=== PATIENT | male | born 1965 | race Two or more races ===

== ENCOUNTER 2017-07-04 20:38 | Inpatient (IN) | payer OTHER ==
--- NOTE | 2017-07-04 20:58 | PDOC ---
Attending Attestation - Resident Resident Name: Darren Cornelius - ED Attending Attestation I have performed the following: I have examined & evaluated the patient, The case was reviewed & discussed with the resident, I agree w/resident's findings & plan - HPI HPI: 07/04/17 20:51 Pt comes with syncope x 3 today once prior to his calling EMS and 2 while EMS was present. Pt is afebrile VSS on arrival. Normal EKG. NSS running. Pt is improved. EKG done by EMS was also NSR. Pt has hx of DM HTN high cholesterol. He had an umbilical hernia repair at [facility] with Gordon Davis. Pt had nothing to eat since 10PM yesterday, except for a glass of juice post op. Went home and hasn't eaten or taken any of his meds.Pt is afebrile here. - Physicial Exam PE: 07/04/17 20:58 Agree iw resident exam. Exquisite abd pain. - Critical Care Time Total Critical Care Time: 30 Critical Care Statement: The care of this patient involved high complexity decision making to prevent further life threatening deterioration of the patient 's condition and/or to evaluate & treat vital organ system(s) failure or risk of failure. - Medical Decision Making 07/04/17 20:[address] abd pelvis wiith oral contrast. 07/04/17 23:18 Lactic acid 3.2 Pt treated with IV abx. Awaiting CT scan 07/05/17 01:14 Patient Name: INDRA ALEGRIA THIS IS A PRELIMINARY REPORT FROM [facility] DATE OF SERVICE: 2017-07-04 23:29:47 IMAGES: 539 EXAM: CT ABDOMEN \T\ PELVIS WITH CONTRAST TECHNIQUE: One of more of the following dose reduction techniques were use: Automated exposure control adjustment of the mA and/or kV according to the patient size, use of iterative reconstructive technique. Axial images from the lung bases to the symphysis pubis utilizing spiral imaging technique with multiplanar reconstructions from the axial data set. 100 mL of Omnipaque 350 IV contrast was administered without noted complication. Oral contrast: Yes. HISTORY: Abdominal pain. COMPARISON: None. FINDINGS: Right lower lobe patchy and linear atelectasis or scarring is present with some more subtle dependent left subpleural atelectasis. Mild to moderate hiatal hernia is present. Left kidney contains a 0.5 and 0.6 cm nonobstructive mid calyceal stones and right kidney contains a 0.2 cm nonobstructive mid calyceal stone. Next the left kidney contains a punctate superior pole cyst. Liver is enlarged at 1.5 cm in length. No focal hepatic mass. No intrahepatic duct dilatation. Hepatic and portal vascularity is patent. Gallbladder and biliary tree are unremarkable. Spleen, pancreas and adrenal glands are unremarkable. Aorta is normal in caliber with no significant atherosclerosis. No lymphadenopathy based on size criteria. Paraumbilical recent surgical changes with inflammation and trace gas is present. Small punctate free air in the upper abdomen is present. Bowel appears unremarkable. Appendix is negative. No free intraperitoneal fluid or gas. Spine shows some minimal retrolisthesis of L4 on L5 with minimal scattered degenerative change. Bladder is mildly distended. Prostate is mildly prominent. Anterior pelvic surgical changes are present with surgical changes of right inguinal hernia repair. IMPRESSION: 1. Punctate nondependent gas in the abdomen and suggestion of recent operative changes in the periumbilical region. Operative changes to the right inguinal canal with some inflammatory stranding. Correlate with any recent operative history. No contrast extravasation identified. Correlate clinically to exclude bowel injury or infection. 2. No active bowel inflammation identified. No bowel obstruction. 3. Nonobstructive renal calyceal stones. 4. Mild to moderate hiatal hernia. Patchy right greater than left dependent atelectasis or scarring. 5. Hepatomegaly. THIS DOCUMENT HAS BEEN ELECTRONICALLY SIGNED 07/05/17 06:19 <Mallory Harrison - Last Filed: 07/05/17 06:24> Heart Score/ECG Review - ECG Intrepretation Comment:: 07/05/17 00:16 Completed @20:49:48 Normal sinus rhythm Normal ECG Vent. rate 69 bpm Pr interval 140 ms QRS duration 80 ms <Blanco Abdul - Last Filed: 07/05/17 00:15>
[2017-07-04 21:02] LABS: BASO % 0.3 % (0-2.0); EOS % 0.4 % (0-4.5); HEMATOCRIT 37.4 % (35.4-49); HEMOGLOBIN 12.1 GM/dL (11.7-16.9); MCHC 32.3 g/dl (32.0-35.9); MEAN CELL VOLUME 59.2 fl (80-96); MEAN PLT VOLUME 9.7 fl (7.5-11.1); MONO % 6.4 % (3.8-10.2); NEUT % 67.9 % (42.8-82.8); PLATELET COUNT 199 K/MM3 (134-434); RBC 6.31 M/mm3 (4.00-5.60); RDW 16.4 % (11.9-15.9); WHITE BLOOD COUNT 7.4 K/mm3 (4.0-10.0)
[2017-07-04 21:04] LABS: ADD RBC MORPHOLOGY YES; MCH 19.1 pg (25.7-33.7)
--- NOTE | 2017-07-04 21:11 | PDOC ---
History of Present Illness - General Chief Complaint: Syncope/Near Syncope Stated Complaint: Syncope Time Seen by Provider: 07/04/17 20:45 History Source: Patient Exam Limitations: No Limitations - History of Present Illness Initial Comments: 07/04/17 21:03 Patient 51M with history of incarcerated hernia repair today at [facility], HTN, DM here today complaining of syncope. EMS reports that the patient tensed up diffusely and collapsed twice. EMS was concerned patient was about to have tonic/clonic seizure and reported the patient as altered en route. Patient states that he last had real food yesterday night, has not had a bowel movement or passed gas, and took a percocet today. Patient complains of abdominal pain. EMS reports patient also had episode of vomiting en route. EMS gave 1L NS and 4 zofran. EKG done in field normal. Past History - Past Medical History Allergies/Adverse Reactions: Allergies Allergy/AdvReac Type Severity Reaction Status Date / Time No Known Allergies Allergy Verified 07/04/17 20:52 Home Medications: Ambulatory Orders Aspirin [Aspirin EC] 81 mg PO DAILY 07/04/17 Glimepiride [Amaryl -] 1 mg PO DAILY 07/04/17 Metformin HCl 850 mg PO DAILY 07/04/17 Omeprazole 40 mg PO DAILY 07/04/17 Tamsulosin HCl [Flomax -] 0.4 mg PO DAILY 07/04/17 - Suicide/Smoking/Psychosocial Hx Smoking History: Former smoker Have you smoked in the past 12 months: No Information on smoking cessation initiated: No Hx Alcohol Use: No Drug/Substance Use Hx: No Review of Systems - Review of Systems Comments:: 07/04/17 21:11 GENERAL/CONSTITUTIONAL: No fever or chills. No weakness. HEAD, EYES, EARS, NOSE AND THROAT: No change in vision. No sore throat. CARDIOVASCULAR: No chest pain or shortness of breath RESPIRATORY: No cough, wheezing, or hemoptysis. GASTROINTESTINAL: No nausea, vomiting, diarrhea or constipation. GENITOURINARY: No dysuria, frequency, or change in urination. MUSCULOSKELETAL: No joint or muscle swelling or pain. No neck or back pain. SKIN: No rash NEUROLOGIC: No headache, vertigo, loss of consciousness, or change in strength/ sensation. HEMATOLOGIC/LYMPHATIC: No anemia, easy bleeding, or history of blood clots. ALLERGIC/IMMUNOLOGIC: No hives or skin allergy. *Physical Exam - Vital Signs Last Vital Signs Temp Pulse Resp BP Pulse Ox 98.9 F 71 19 156/99 100 07/04/17 20:45 07/04/17 20:45 07/04/17 20:45 07/04/17 20:45 07/04/17 20:45 - Physical Exam Comments: 07/04/17 21:13 GENERAL: Awake, alert, and fully oriented, in no acute distress HEAD: No signs of trauma, normocephalic, atraumatic EYES: PERRLA, EOMI, sclera anicteric, conjunctiva clear ENT: Auricles normal inspection, hearing grossly normal, nares patent, oropharynx clear without exudates. Moist mucosa NECK: Normal ROM, supple, no lymphadenopathy, JVD, or masses LUNGS: No distress, speaks full sentences, clear to auscultation bilaterally HEART: Regular rate and rhythm, normal S1 and S2, no murmurs, rubs or gallops, peripheral pulses normal and equal bilaterally. ABDOMEN: Diffusely tender, no rebound, no guarding NEUROLOGICAL: Cranial nerves II through XII grossly intact. Normal speech, no focal sensorimotor deficits SKIN: Warm, Dry, normal turgor, no rashes or lesions noted. ED Treatment Course - LABORATORY CBC & Chemistry Diagram: 07/04/17 20:40 07/04/17 20:40 - RADIOLOGY Radiology Studies Ordered: Category Date Time Status ABDOMEN & PELVIS CT WITH CONTR [CT] Stat CT Scan 07/04/17 20:[address] WITHOUT CONTRAST [CT] Stat CT Scan 07/04/17 20:56 Ordered CHEST X-RAY PORTABLE* [RAD] Stat Radiology 07/04/17 20:45 Ordered Medical Decision Making - Medical Decision Making 07/04/17 21:14 Patient is 51M with history of HTN, DM and incarcerated hernia repair today here with syncope s/p surgery. No confirmed bowel movement or passing as today, concern for post op ileus. Vital signs stable, no fever. Will do work up of cbc , cmp, ekg, trop, pt/inr, lactate, ekg, head ct, abd/pelvis ct. EKG shows normal sinus rhythm with rate of 69. No st elevation or depression. No significant t wave changes. Normal DC/QRS/QTc intervals. Reassuring EKG. 07/04/17 22:16 Laboratory Tests 07/04/17 07/04/17 07/04/17 20:40 20:40 20:40 WBC 7.4 Hgb 12.1 Plt Count 199 INR 1.04 Carbon Dioxide 30 Anion Gap 6 L Lactic Acid Urine WBC (Auto) Urine RBC (Auto) 07/04/17 07/04/17 20:40 21:27 WBC Hgb Plt Count INR Carbon Dioxide Anion Gap Lactic Acid 3.2 H* Urine WBC (Auto) 2 Urine RBC (Auto) <1 CBC normal. INR normal. CMP reassuring. Lactic acid elevated to 3.2. UA negative. CXR shows no acute cardiopulmonary process. Patient started on Zosyn for possible infection. Possible that patient's percocet is hiding fever. DDx includes, but is not limited to: dehydration, seizure, syncope, infection. 07/05/17 01:[address] abdomen shows no acute process. Concern now weighted towards syncope, seizure *DC/Admit/Observation/Transfer Diagnosis at time of Disposition: Syncope - Discharge Dispostion Condition at time of disposition: Stable Decision to Admit order: Yes - Referrals Referrals: Fatmata Dasilva MD [Primary Care Provider] - - Patient Instructions - Post Discharge Activity
[2017-07-04 21:16] LABS: INR 1.04 (0.82-1.09); PROTHROMBIN TIME (PATIENT) 11.8 SEC (9.7-13.0)
[2017-07-04 21:18] LABS: ACTIVATED PTT 25.4 SECONDS (26.9-34.4)
[2017-07-04 21:43] LABS: URINE APPEARANCE CLEAR; URINE BILIRUBIN NEGATIVE (<2.0 mg/dL); URINE COLOR LTYELLOW; URINE GLUCOSE (UA) 3+ (NEGATIVE); URINE KETONE NEGATIVE (NEGATIVE); URINE LEUK ESTERASE NEGATIVE (NEGATIVE); URINE NITRITE NEGATIVE (NEGATIVE); URINE UROBILINOGEN NEGATIVE mg/dL (0.2-1.0)
[2017-07-04] MEDS ORDERED: PIPERACILLIN/TAZOB 3.375 GM 3.375 GM in DEXTROSE 5%-WATER - 50 ML IVPB ONE (21:43)
[2017-07-04 21:44] LABS: URINE PROTEIN 1+ (NEGATIVE)
[2017-07-04 21:48] LABS: BLOOD UREA NITROGEN 10 mg/dL (7-18); GLUCOSE,RANDOM 250 mg/dL (74-106)
[2017-07-04 21:49] LABS: ALBUMIN 3.5 g/dl (3.4-5.0); ANION GAP 6 (8-16); BILIRUBIN,TOTAL 0.5 mg/dL (0.2-1.0); CALCIUM 8.3 mg/dL (8.5-10.1); CHLORIDE 100 mmol/L (98-107); CO2 30 mmol/L (21-32); POTASSIUM 3.8 mmol/L (3.5-5.1); SGOT/AST 28 U/L (15-37); SODIUM 136 mmol/L (136-145); TOT PROT 7.7 g/dl (6.4-8.2)
[2017-07-04 21:50] LABS: ALK PHOS 100 U/L (45-117); SGPT/ALT 40 U/L (12-78)
[2017-07-04 21:51] LABS: URINE MUCUS RARE
[2017-07-04 22:01] LABS: ANISOCYTOSIS 2+; MACROCYTOSIS 1+; PLATELET ESTIMATE ADEQUATE
[2017-07-04] MEDS ORDERED: PIPERACILLIN/TAZOB 3.375 GM 3.375 GM/50 ML BAG IVPB ONE (22:01)
--- NOTE | 2017-07-05 02:26 | HP ---
CHIEF COMPLAINT: possible syncope PCP: Dr. Fatmata Dasilva HISTORY OF PRESENT ILLNESS: 51 y/o M with PMH HTN, diabetes, who presented to the ED after possible syncopal episode after incarcerated umbilical hernia repair earlier today (07/04 ) at [facility]. As per patient, today at 10:30AM, he underwent umbilical hernia repair. After his procedure was complete, he had decreased appetite, felt faint and exhausted, telling his family he was "going to rest and sleep for the rest of the day." At 6PM, his suggested he eat something, so he came to the kitchen and sat on a chair, when he began to feel dizzy and nauseated. Pt then slumped back in his chair, with his eyes rolling back. Witnessed by family. His stated that he "looked blue" and the daughter called 911. En route, pt had one episode of NBNB emesis and received NS and Zofran. After, pt confused about earlier events. During this time, pt endorses abdominal pain with movement. Denies MEZA, fever, chills, SOB, or changes in urinary or bowel function. Also denies tongue biting, urinary or fecal incontinence, tonic-clonic movements. He also states that he did not eat since 10PM, the night before his surgery ( , 07/03). Ever since, he has felt faint and weak. ER course was notable for: (1) zosyn 3.375gm x 1 (2) initial lactic 3.2, improved to 1.8 after IVF (3) Recent Travel: none PAST MEDICAL HISTORY: as above PAST SURGICAL HISTORY: s/p incarcerated umbilical hernia repair Social History: Smoking: denies Alcohol: denies Drugs: denies Family History: non-contributory Allergies No Known Allergies Allergy (Verified 07/04/17 20:52) HOME MEDICATIONS: Home Medications Medication Instructions Recorded Aspirin [Aspirin EC] 81 mg PO DAILY 07/04/17 Glimepiride [Amaryl -] 1 mg PO DAILY 07/04/17 Metformin HCl 850 mg PO DAILY 07/04/17 Omeprazole 40 mg PO DAILY 07/04/17 Tamsulosin HCl [Flomax -] 0.4 mg PO DAILY 07/04/17 REVIEW OF SYSTEMS CONSTITUTIONAL: Absent: fever, chills, diaphoresis, generalized weakness, malaise, loss of appetite, weight change HEENT: Absent: rhinorrhea, nasal congestion, throat pain, throat swelling, difficulty swallowing, mouth swelling, ear pain, eye pain, visual changes CARDIOVASCULAR: Absent: chest pain, syncope, palpitations, irregular heart rate, lightheadedness , peripheral edema RESPIRATORY: Absent: cough, shortness of breath, dyspnea with exertion, orthopnea, wheezing, stridor, hemoptysis GASTROINTESTINAL: +abdominal pain, nausea, vomiting Absent: diarrhea, constipation, melena, hematochezia GENITOURINARY: Absent: dysuria, frequency, urgency, hesitancy, hematuria, flank pain, genital pain MUSCULOSKELETAL: Absent: myalgia, arthralgia, joint swelling, back pain, neck pain SKIN: Absent: rash, itching, pallor HEMATOLOGIC/IMMUNOLOGIC: Absent: easy bleeding, easy bruising, lymphadenopathy, frequent infections ENDOCRINE: Absent: unexplained weight gain, unexplained weight loss, heat intolerance, cold intolerance NEUROLOGIC: Absent: headache, focal weakness or paresthesias, dizziness, unsteady gait, seizure, mental status changes, bladder or bowel incontinence PSYCHIATRIC: Absent: anxiety, depression, suicidal or homicidal ideation, hallucinations. PHYSICAL EXAMINATION Vital Signs - 24 hr 07/04/17 20:45 Temperature 98.9 F Pulse Rate 71 Respiratory 19 Rate Blood Pressure 156/99 O2 Sat by Pulse 100 Oximetry (%) GENERAL: Sitting in bed. Awake, alert, and fully oriented, in no acute distress. HEAD: Normal with no signs of trauma. EYES: Pupils equal, round and reactive to light, extraocular movements intact, sclera anicteric, conjunctiva clear. EARS, NOSE, THROAT: Ears normal, nares patent, oropharynx clear without exudates. Moist mucous membranes. NECK: Normal range of motion, supple LUNGS: Breath sounds equal, clear to auscultation bilaterally. No wheezes, and no crackles. No accessory muscle use. HEART: Regular rate and rhythm, normal S1 and S2 without murmur, rub or gallop. ABDOMEN: Soft, +surgical patch- with serosanguineous drainage inside, normoactive bowel sounds, no guarding, no rebound, no masses. MUSCULOSKELETAL: Normal range of motion at all joints. No bony deformities or tenderness. LOWER EXTREMITIES: 2+ dorsalis pedis pulses, warm, well-perfused. No calf tenderness. No peripheral edema. NEUROLOGICAL: Cranial nerves II-XII intact. PSYCHIATRIC: Cooperative. Good eye contact. SKIN: Warm, dry, normal turgor Laboratory Results - last 24 hr 07/04/17 07/04/17 07/04/17 20:40 20:40 20:40 WBC 7.4 RBC 6.31 H Hgb 12.1 Hct 37.4 MCV 59.2 L MCH 19.1 L MCHC 32.3 RDW 16.4 H Plt Count 199 MPV 9.7 Neutrophils % 67.9 Lymphocytes % 25.0 Monocytes % 6.4 Eosinophils % 0.4 Basophils % 0.3 Hypochromia 2+ Platelet Estimate Adequate Platelet Comment Anisocytosis 2+ Microcytosis 2+ Macrocytosis 1+ PT with INR 11.80 INR 1.04 PTT (Actin FS) 25.4 L Sodium 136 Potassium 3.8 Chloride 100 Carbon Dioxide 30 Anion Gap 6 L BUN 10 Creatinine 1.0 Creat Clearance w eGFR > 60 Random Glucose 250 H Lactic Acid Calcium 8.3 L Total Bilirubin 0.5 AST 28 ALT 40 Alkaline Phosphatase 100 Total Protein 7.7 Albumin 3.5 07/04/17 07/04/17 07/04/17 20:40 20:40 21:27 Lactic Acid 3.2 H* Alkaline Phosphatase Troponin I < 0.02 Urine Color Ltyellow Urine Appearance Clear Urine pH 7.0 Ur Specific Bailey 1.011 Urine Protein 1+ H Urine Glucose (UA) 3+ H Urine Ketones Negative Urine Blood Negative Urine Nitrite Negative Urine Bilirubin Negative Urine Urobilinogen Negative Ur Leukocyte Esterase Negative Urine WBC (Auto) 2 Urine RBC (Auto) <1 Urine Mucus Rare 07/04/17 22:18 Lactic Acid 1.8 07/04/17: CXR: No acute pathology 07/04/17: Head CT: no acute intracranial hemorrhage, mass effects, or hydrocephalus 07/04/17: CTAP: 1. Punctate nondependent gas in the abdomen and suggestion of recent operative changes in the periumbilical region. Operative changes to the right inguinal canal with some inflammatory stranding. Correlate with any recent operative history. No contrast extravasation identified. Correlate clinically to exclude bowel injury or infection. 2. No active bowel inflammation identified. No bowel obstruction. 3. Nonobstructive renal calyceal stones. 4. Mild to moderate hiatal hernia. Patchy right greater than left dependent atelectasis or scarring. 5. Hepatomegaly. ASSESSMENT/PLAN: 51 y/o M with PMH HTN, diabetes, who presented to the ED after possible syncopal episode after incarcerated umbilical hernia repair earlier today (07/04 ) at [facility]. #R/o syncopal episode -possible vasovagal, nausea preceding event. or likely 2/2 dehydration from decreased PO intake d/t surgery -Orthostatics -tele monitoring -F/u ECHO -F/u carotid doppler -IV NS 100 cc/hr -Cardio consult- Dr. Hawley #R/o seizure -Pt without tongue biting, loss of urinary or fecal incontinence -Neuro consult- #s/p recent incarcerated umbilical hernia repair -surgeon: Dr. Analia Davis -as per surgery instructions in packet pt given, holding aspirin 81mg PO qd after his surgery -please refer to packet #HTN- uncontrolled -likely 2/2 abdominal discomfort s/p surgery -will continue to monitor #DM -hold home metformin, glyburide -F/u HbA1c -BGM q4h -ISS ACHS #F/E/N -IV NS 100 cc/hr -continue to follow lytes -diabetic, sodium controlled diet #PPX -early ambulation, SCD's #Dispo tele monitoring Visit type - Emergency Visit Emergency Visit: Yes ED Registration Date: 07/05/17 Care time: The patient presented to the Emergency Department on the above date and was hospitalized for further evaluation of their emergent condition. - New Patient This patient is new to me today: Yes Date on this admission: 07/05/17 - Critical Care Critical Care patient: No Hospitalist Screening - Colonoscopy Questionnaire Colonoscopy Questionnaire: Colonoscopy Questionnaire - Patient: 50 - 75 years old and never had a screening colonoscopy: Unknown History of colon or rectal polyps, or CA: Unknown History of IBD, Crohn's disease or UC: Unknown History of abdominal radiation therapy as a child: Unknown - Relative: 1 with colon or rectal CA, or polyps at age 60 or younger: Unknown Colon or rectal CA diagnosed at age 45 or younger: Unknown Multiple relatives with colon or rectal CA: Unknown - Outcome: Screening Result: Negative Screen
[2017-07-05] MEDS: SODIUM CHLORIDE 1,000 ML IV SCH ×2 (02:50→21:00)
--- NOTE | 2017-07-05 04:11 | PN ---
Teaching Attending Note Name of Resident: Beena Betancourt ATTENDING PHYSICIAN STATEMENT I saw and evaluated the patient. I reviewed the resident's note and discussed the case with the resident. I agree with the resident's findings and plan as documented. SUBJECTIVE: OBJECTIVE: ASSESSMENT AND PLAN: patient is admitted for near syncope IVF hydration cardiology echocardiogram neurology evaluation
[2017-07-05 05:39] LABS: HEMATOCRIT 35.4 % (35.4-49); HEMOGLOBIN 11.6 GM/dL (11.7-16.9); MCHC 32.8 g/dl (32.0-35.9); MEAN CELL VOLUME 59.1 fl (80-96); MEAN PLT VOLUME 9.2 fl (7.5-11.1); PLATELET COUNT 202 K/MM3 (134-434); RBC 5.98 M/mm3 (4.00-5.60); WHITE BLOOD COUNT 6.9 K/mm3 (4.0-10.0)
[2017-07-05 05:41] LABS: MCH 19.4 pg (25.7-33.7)
[2017-07-05 05:45] LABS: ADD RBC MORPHOLOGY YES
[2017-07-05 06:10] LABS: ANION GAP 6 (8-16); BLOOD UREA NITROGEN 9 mg/dL (7-18); CALCIUM 7.9 mg/dL (8.5-10.1); CHLORIDE 103 mmol/L (98-107); CO2 29 mmol/L (21-32); CREATININE 0.9 mg/dL (0.7-1.3); GLUCOSE,RANDOM 268 mg/dL (74-106); MAGNESIUM 1.6 mg/dL (1.8-2.4); PHOSPHOROUS 2.6 mg/dL (2.5-4.9); SODIUM 138 mmol/L (136-145)
[2017-07-05 06:35] LABS: CHOLESTEROL 189 mg/dL (50-200); HDL CHOLESTEROL 32 mg/dL (40-60); TRIGLYCERIDES 185 mg/dL (35-160)
[2017-07-05] MEDS: INSULIN SLIDING SCALE (NOVOLOG) 1 VIAL SQ SCH ×4 (08:19→22:16)
--- NOTE | 2017-07-05 09:20 | EKG ---
Test Reason : Blood Pressure : / mmHG Vent. Rate : 069 BPM Atrial Rate : 069 BPM P-R Int : 140 ms QRS Dur : 080 ms QT Int : 388 ms P-R-T Axes : 047 008 038 degrees QTc Int : 415 ms POOR DATA QUALITY, INTERPRETATION MAY BE ADVERSELY AFFECTED NORMAL SINUS RHYTHM NORMAL ECG NO PREVIOUS ECGS AVAILABLE Confirmed by WILL DESHPANDE MD ([id number]) on 07/05/2017 9:20:34 AM Referred By: Confirmed By:WILL DESHPANDE MD
[2017-07-05] MEDS ORDERED: PANTOPRAZOLE 40 MG TABLET (FP) PO SCH (10:00)
--- NOTE | 2017-07-05 10:14 | PN ---
Progress Note (short form) - Note Progress Note: Was called by the nurse that the patient was having severe abdominal pain. As per patient's who is at bedside, patient had a surgery; open incarcerated umbilical hernia. went home post surgery slept for 4 hrs then when he woke up had a syncopal event, Was brought in to the nearest hospital since patient lives in [facility]. Patient has diffuse abdominal pain. No fever or chills. No shortness of breath. Vital Signs Temperature 99.7 F H 07/05/17 09:00 Pulse Rate 89 07/05/17 09:00 Respiratory Rate 20 07/05/17 09:00 Blood Pressure 154/86 07/05/17 09:00 O2 Sat by Pulse Oximetry (%) 100 07/05/17 08:45 GENERAL: Sitting in bed. Awake, alert, and fully oriented, in no acute distress. HEAD: Normal with no signs of trauma. EYES: Pupils equal, round and reactive to light, extraocular movements intact, sclera anicteric, conjunctiva clear. EARS, NOSE, THROAT: Ears normal, nares patent, oropharynx clear without exudates. Moist mucous membranes. NECK: Normal range of motion, supple LUNGS: Breath sounds equal, clear to auscultation bilaterally. No wheezes, and no crackles. No accessory muscle use. HEART: Regular rate and rhythm, normal S1 and S2 without murmur, rub or gallop. ABDOMEN: Soft, +surgical patch is saturated with serosanguineous drainage inside , hypoactive BS left side, normoactive bowel sounds on the right side, positive for severe tenderness above the umbilical area, positive for voluntary guarding. no rebound , no masses appreciated. MUSCULOSKELETAL: Normal range of motion at all joints. No bony deformities or tenderness. EXTREMITIES: 2+ dorsalis pedis pulses, warm, well-perfused. No calf tenderness. No peripheral edema. NEUROLOGICAL: Cranial nerves II-XII intact. PSYCHIATRIC: Cooperative. Good eye contact. SKIN: Warm, dry, normal turgor CBCD WBC 6.9 K/mm3 (4.0-10.0) 07/05/17 05:32 RBC 5.98 M/mm3 (4.00-5.60) H 07/05/17 05:32 Hgb 11.6 GM/dL (11.7-16.9) L 07/05/17 05:32 Hct 35.4 % (35.4-49) 07/05/17 05:32 MCV 59.1 fl (80-96) L 07/05/17 05:32 MCHC 32.8 g/dl (32.0-35.9) 07/05/17 05:32 RDW 16.0 % (11.9-15.9) H 07/05/17 05:32 Plt Count 202 K/MM3 (134-434) 07/05/17 05:32 MPV 9.2 fl (7.5-11.1) 07/05/17 05:32 CMP Sodium 138 mmol/L (136-145) 07/05/17 05:32 Potassium 4.0 mmol/L (3.5-5.1) 07/05/17 05:32 Chloride 103 mmol/L (98-107) 07/05/17 05:32 Carbon Dioxide 29 mmol/L (21-32) 07/05/17 05:32 Anion Gap 6 (8-16) L 07/05/17 05:32 BUN 9 mg/dL (7-18) 07/05/17 05:32 Creatinine 0.9 mg/dL (0.7-1.3) 07/05/17 05:32 Creat Clearance w eGFR > 60 (>60) 07/04/17 20:40 Random Glucose 268 mg/dL (74-106) H 07/05/17 05:32 Calcium 7.9 mg/dL (8.5-10.1) L 07/05/17 05:32 Total Bilirubin 0.5 mg/dL (0.2-1.0) 07/04/17 20:40 AST 28 U/L (15-37) 07/04/17 20:40 ALT 40 U/L (12-78) 07/04/17 20:40 Alkaline Phosphatase 100 U/L (45-117) 07/04/17 20:40 Total Protein 7.7 g/dl (6.4-8.2) 07/04/17 20:40 Albumin 3.5 g/dl (3.4-5.0) 07/04/17 20:40 CARDIAC ENZYMES Troponin I < 0.02 ng/ml (0.00-0.05) 07/05/17 05:32 Current Medications Generic Name Dose Route Start Last Admin Trade Name Saleem PRN Reason Stop Dose Admin Sodium Chloride 1,000 mls @ 100 mls/hr 07/05/17 02:15 07/05/17 02:50 Normal Saline - IV 100 mls/hr ASDIR LEANNE Administration Piperacillin Sod/Tazobactam 100 mls @ 200 mls/hr 07/05/17 10:00 Sod 4.5 gm/ Dextrose IVPB Q8H-IV LEANNE Protocol Insulin Aspart 1 vial 07/05/17 07:00 07/05/17 08:19 Novolog Vial Sliding Scale - SQ Not Given ACHS [facility] Protocol Tamsulosin HCl 0.4 mg 07/05/17 08:30 Flomax - PO DAILY@0830 [facility] Home Medications Medication Instructions Recorded Aspirin [Aspirin EC] 81 mg PO DAILY 07/04/17 Glimepiride [Amaryl -] 1 mg PO DAILY 07/04/17 Metformin HCl 850 mg PO DAILY 07/04/17 Omeprazole 40 mg PO DAILY 07/04/17 Tamsulosin HCl [Flomax -] 0.4 mg PO DAILY 07/04/17 A/P: Patient is a 51 y/o M with PMH HTN, diabetes, who presented to the ED after possible syncopal episode after incarcerated umbilical hernia repair earlier today (07/04) at [facility]. # Acute abdominal pain s/p umbilical hernia repair on 07/04/2017. discussed with the Surgeon who is covering for in details, at [facility] # [phone], discussed the CT scan in details and symptoms in details, will accept the patient when we transfer the patient. IV tylenol for pain , as per our surgeon would like the patient to be transferred , Id was consulted, placed the patient on IV antibiotic, carbajal culture is pending. # syncopal episode possible due to an apneic episode as per patient was sittin stevenson the chair , where he came out of the snoring and became unconscious within a second of loss of consciousness, 911 was called, and was brought to the closest emergency room. will continue IVF, #s/p recent incarcerated umbilical hernia repair surgeon: Dr. Analia Davis -as per surgery instructions in packet pt given, holding aspirin 81mg PO qd after his surgery, please refer to packet #HTN- uncontrolled likely due to his abdominal pain s/p surgery, will continue to monitor #T2dm , with lactic acidosis hold home metformin, glyburide, sliding scale with coverage, f/u HbA1c, SS with coverage q4h DVt px: SCds , no heparin as per surgical request , no aspirin as well. Visit type - Emergency Visit Emergency Visit: Yes ED Registration Date: 07/05/17 Care time: The patient presented to the Emergency Department on the above date and was hospitalized for further evaluation of their emergent condition. - New Patient This patient is new to me today: Yes Date on this admission: 07/05/17 - Critical Care Critical Care patient: Yes Total Critical Care Time (in minutes): 40 Critical Care Statement: The care of this patient involved high complexity decision making to prevent further life threatening deterioration of the patient 's condition and/or to evaluate & treat vital organ system(s) failure or risk of failure. - Discharge Referral Referred to [facility] Med P.C.: No
[2017-07-05] MEDS ORDERED: PIPERACILLIN/TAZOBACTAM 4.5 GM VIAL IVPB ONE ×2 (10:26→19:30)
[2017-07-05] MEDS ORDERED: DEXTROSE 5%-WATER 100 ML IVPB ONE ×2 (10:26→19:30)
[2017-07-05] MEDS: PIPERACILLIN/TAZOB 4.5 GM 4.5 GM in DEXTROSE 5%-WATER 100 ML IVPB SCH ×2 (10:34→20:54)
[2017-07-05] MEDS: TAMSULOSIN HCL 0.4 MG CAP.ER.24H (FP) PO SCH (10:34)
[2017-07-05] MEDS ORDERED: ACETAMINOPHEN 1000 MG/100 ML VIAL (NON FORMULARY) IVPB ONE ×2 (10:45→21:58)
[2017-07-05 10:54] LABS: ALBUMIN 3.1 g/dl (3.4-5.0); ALK PHOS 97 U/L (45-117); ANION GAP 8 (8-16); BILIRUBIN,TOTAL 0.5 mg/dL (0.2-1.0); BLOOD UREA NITROGEN 8 mg/dL (7-18); CALCIUM 8.2 mg/dL (8.5-10.1); CHLORIDE 103 mmol/L (98-107); CO2 28 mmol/L (21-32); CREATININE 0.9 mg/dL (0.7-1.3); GLUCOSE,RANDOM 265 mg/dL (74-106); MAGNESIUM 1.7 mg/dL (1.8-2.4); PHOSPHOROUS 2.4 mg/dL (2.5-4.9); SGOT/AST 24 U/L (15-37); SGPT/ALT 34 U/L (12-78); SODIUM 139 mmol/L (136-145); TOT PROT 7.1 g/dl (6.4-8.2)
--- NOTE | 2017-07-05 11:03 | CON.ID ---
Consult Consult Specialty:: infectious disease - Alcohol/Substance Use Hx Alcohol Use: No - Smoking History Smoking history: Former smoker Have you smoked in the past 12 months: No Home Medications - Allergies Allergies/Adverse Reactions: Allergies Allergy/AdvReac Type Severity Reaction Status Date / Time No Known Allergies Allergy Verified 07/04/17 20:52 - Home Medications Home Medications: Ambulatory Orders Aspirin [Aspirin EC] 81 mg PO DAILY 07/04/17 Glimepiride [Amaryl -] 1 mg PO DAILY 07/04/17 Metformin HCl 850 mg PO DAILY 07/04/17 Omeprazole 40 mg PO DAILY 07/04/17 Tamsulosin HCl [Flomax -] 0.4 mg PO DAILY 07/04/17 Physical Exam Vital Signs: Vital Signs Temperature 99.7 F H 07/05/17 09:00 Pulse Rate 89 07/05/17 09:00 Respiratory Rate 20 07/05/17 09:00 Blood Pressure 154/86 07/05/17 09:00 O2 Sat by Pulse Oximetry (%) 100 07/05/17 08:45 Labs: CBC, BMP 07/05/17 05:32 07/05/17 09:05 Assessment/Plan d/w hospitalist- doubt infection, awating ct scan results cultures sent zosyn for 24 hours while surgery eval/radiology results are pending
[2017-07-05 11:46] LABS: AMYLASE 48 U/L (25-115); LIPASE 131 U/L (73-393)
--- NOTE | 2017-07-05 12:11 | CONSULT ---
- Consultation REQUESTING PROVIDER: Minh MORRISON CONSULT REQUEST: We have been asked to surgically evaluate this patient for abdominal pain PCP:Cat Quinones HISTORY OF PRESENT ILLNESS: CTSP who is 24 hours s/p open repair w/mesh of a chronically incarcerated umbilical hernia; post ASU d/c he had 2 syncopal episodes and was brought here; he c/o pain at the operative site among dizziness and hunger and thirst; he has NOC; w/u was done starting in the ER and reviewed. PMHx: NIDDM; BPH; recurrent RIH PSHx: RIH repair x 3 Home Medications Medication Instructions Recorded Aspirin [Aspirin EC] 81 mg PO DAILY 07/04/17 Glimepiride [Amaryl -] 1 mg PO DAILY 07/04/17 Metformin HCl 850 mg PO DAILY 07/04/17 Omeprazole 40 mg PO DAILY 07/04/17 Tamsulosin HCl [Flomax -] 0.4 mg PO DAILY 07/04/17 Allergies Allergy/AdvReac Type Severity Reaction Status Date / Time No Known Allergies Allergy Verified 07/04/17 20:52 PHYSICAL EXAM: GENERAL: Awake, alert, and fully oriented, in pain 4-5/10 HEAD: Normal with no signs of trauma. EYES: sclera anicteric, conjunctiva clear. NECK: Normal ROM, supple without lymphadenopathy, JVD, or masses. ABDOMEN: Soft, tender at the operative site at the umbilicus, not distended, normoactive bowel sounds, no evidence of an acute surgical abdomen. No organomegaly. Recurrent RIH; no LIH; genitaalia are normal. MUSCULOSKELETAL: Normal ROM at all joints. No bony deformities or tenderness. No CVA tenderness. UPPER EXTREMITIES: 2+ pulses, warm, well-perfused. No cyanosis. Cap refill <2 seconds. No peripheral edema. LOWER EXTREMITIES: 2+ pulses, warm, well-perfused. No calf tenderness. No peripheral edema. NEUROLOGICAL: Normal speech, gait not observed. PSYCH: Cooperative. Good eye contact. Appropriate mood and affect. SKIN: Warm, dry, normal turgor, no rashes or lesions noted. Vital Signs Temperature 99.7 F H 07/05/17 09:00 Pulse Rate 89 07/05/17 09:00 Respiratory Rate 20 07/05/17 09:00 Blood Pressure 154/86 07/05/17 09:00 O2 Sat by Pulse Oximetry (%) 100 07/05/17 08:45 Lab Results WBC 6.9 K/mm3 (4.0-10.0) 07/05/17 05:32 RBC 5.98 M/mm3 (4.00-5.60) H 07/05/17 05:32 Hgb 11.6 GM/dL (11.7-16.9) L 07/05/17 05:32 Hct 35.4 % (35.4-49) 07/05/17 05:32 MCV 59.1 fl (80-96) L 07/05/17 05:32 MCHC 32.8 g/dl (32.0-35.9) 07/05/17 05:32 RDW 16.0 % (11.9-15.9) H 07/05/17 05:32 Plt Count 202 K/MM3 (134-434) 07/05/17 05:32 Sodium 139 mmol/L (136-145) 07/05/17 09:05 Potassium 4.0 mmol/L (3.5-5.1) 07/05/17 09:05 Chloride 103 mmol/L (98-107) 07/05/17 09:05 Carbon Dioxide 28 mmol/L (21-32) 07/05/17 09:05 Anion Gap 8 (8-16) 07/05/17 09:05 BUN 8 mg/dL (7-18) 07/05/17 09:05 Creatinine 0.9 mg/dL (0.7-1.3) 07/05/17 09:05 Random Glucose 265 mg/dL (74-106) H 07/05/17 09:05 Calcium 8.2 mg/dL (8.5-10.1) L 07/05/17 09:05 INR 1.04 (0.82-1.09) 07/04/17 20:40 CT scan a/p reviewed; abdominal films reviewed IMP: probable post ileus and post op abdominal pain; no evidence of an acute surgical abdomen. PLAN: Suggest NPO/IVF/non narcotic analgesia as needed and ambulation; will f/u. Barney June MD FACS
[2017-07-05 13:04] VITALS: BMI 27.5
--- NOTE | 2017-07-05 15:36 | EKG ---
Test Reason : Blood Pressure : / mmHG Vent. Rate : 085 BPM Atrial Rate : 085 BPM P-R Int : 156 ms QRS Dur : 080 ms QT Int : 356 ms P-R-T Axes : 055 000 046 degrees QTc Int : 423 ms NORMAL SINUS RHYTHM NORMAL ECG WHEN COMPARED WITH ECG OF 04-JUL-2017 20:49, NO SIGNIFICANT CHANGE WAS FOUND Confirmed by WILL DESHPANDE MD ([id number]) on 07/05/2017 3:36:34 PM Referred By: Sheyla QUEVEDO Confirmed By:WILL DESHPANDE MD
--- NOTE | 2017-07-05 16:47 | CON.CARD ---
Consult Consult Specialty:: Cardiology Referred by:: Hospitalist Medicine Reason for Consultation:: Syncope - History of Present Illness Chief Complaint: Syncope, abd pain History of Present Illness: HISTORY OF PRESENT ILLNESS: 51 yo male h/o Type 2 DM s/p recent open repair w/ mesh of a chronically incarcerated umbilical hernia; post ASU d/c he had 2 syncopal episodes with prodrome of dizziness and nausea/emesis and was brought here. He c/o pain at the operative site, denies chest pain, dyspnea, palpitations, orthopnea, PND or LE edema, no events thus far on telemetry. PMHx: NIDDM; BPH; recurrent RIH PSHx: RIH repair x 3 - History Source History Provided By: Patient - Alcohol/Substance Use Hx Alcohol Use: No - Smoking History Smoking history: Former smoker Have you smoked in the past 12 months: No Home Medications - Allergies Allergies/Adverse Reactions: Allergies Allergy/AdvReac Type Severity Reaction Status Date / Time No Known Allergies Allergy Verified 07/04/17 20:52 - Home Medications Home Medications: Ambulatory Orders Aspirin [Aspirin EC] 81 mg PO DAILY 07/04/17 Glimepiride [Amaryl -] 1 mg PO DAILY 07/04/17 Metformin HCl 850 mg PO DAILY 07/04/17 Omeprazole 40 mg PO DAILY 07/04/17 Tamsulosin HCl [Flomax -] 0.4 mg PO DAILY 07/04/17 Review of Systems - Review of Systems Neurological: reports: Dizziness, Syncope Vital Signs: Vital Signs Temperature 98.7 F 07/05/17 14:00 Pulse Rate 78 07/05/17 14:00 Respiratory Rate 20 07/05/17 14:00 Blood Pressure 142/85 07/05/17 14:00 O2 Sat by Pulse Oximetry (%) 100 07/05/17 14:00 Constitutional: Yes: No Distress, Calm Neck: Yes: Supple Respiratory: Yes: Regular, CTA Bilaterally Gastrointestinal: Yes: Soft, Hypoactive Bowel Sounds, Tenderness Cardiovascular: Yes: Regular Rate and Rhythm JVD: No Carotid Bruit: No Heart Sounds: Yes: S1, S2 Edema: No - Other Data Labs, Other Data: CBC, BMP 07/05/17 05:32 07/05/17 09:05 INR, PTT INR 1.04 (0.82-1.09) 05/11/18 20:40 Troponin, BNP 07/04/17 07/05/17 20:40 05:32 Troponin I < 0.02 < 0.02 Troponin, BNP 07/04/17 07/05/17 20:40 05:32 Troponin I < 0.02 < 0.02 NSR @ 85, no events on telemetry Ejection Fraction %: LVEF > or = 40 % Imaging - Results Chest X-ray: Report Reviewed (NAD) Cat Scan: Report Reviewed (HCT Negative, abd/pelvic CT no obstruction) Problem List - Problems (1) History of umbilical hernia repair Code(s): Z98.890 - OTHER SPECIFIED POSTPROCEDURAL STATES; Z87.19 - PERSONAL HISTORY OF OTHER DISEASES OF THE DIGESTIVE SYSTEM (2) Type 2 diabetes mellitus Code(s): E11.9 - TYPE 2 DIABETES MELLITUS WITHOUT COMPLICATIONS Qualifiers: Diabetes mellitus directory operator insulin use: without snf use (3) Syncope Code(s): R55 - SYNCOPE AND COLLAPSE Qualifiers: Syncope type: vasovagal syncope Qualified Code(s): R55 - Syncope and collapse Assessment/Plan 1. Vasovagal, orthostatic syncope in context of 2. Probable post ileus and post op abdominal pain s/p open umbilical hernia repair POD#1 3. HTN 4. Type 2 DM PLAN: 1. NPO/IVF/non narcotic analgesia as needed and ambulation per surgery, on empiric abx 2. Monitor telemetry and orthostatic VS 3. Thank you for consultative opportunity
[2017-07-06] MEDS ORDERED: DEXTROSE 5%-WATER 100 ML IVPB ONE ×2 (00:03→09:18)
[2017-07-06] MEDS ORDERED: PIPERACILLIN/TAZOBACTAM 4.5 GM VIAL IVPB ONE ×2 (00:03→09:18)
[2017-07-06] MEDS ORDERED: ACETAMINOPHEN 1000 MG/100 ML VIAL (NON FORMULARY) IVPB ONE (00:15)
[2017-07-06] MEDS: PIPERACILLIN/TAZOB 4.5 GM 4.5 GM in DEXTROSE 5%-WATER 100 ML IVPB SCH ×2 (01:09→09:24)
[2017-07-06] MEDS: SODIUM CHLORIDE 1,000 ML IV SCH (06:23)
[2017-07-06] MEDS: INSULIN SLIDING SCALE (NOVOLOG) 1 VIAL SQ SCH ×2 (06:52→11:40)
[2017-07-06] MEDS: TAMSULOSIN HCL 0.4 MG CAP.ER.24H (FP) PO SCH (09:24)
--- NOTE | 2017-07-06 09:25 | PN ---
Progress Note (short form) - Note Progress Note: Attending Surgeon No c/o; tolerated diet; only incisional pain; had BM and passing flatus VSS AF abdo- incision c/d/i; exam o/w unremarkable WBC-wnl IMP: improved PLAN: Advance diet as tolerated; prn surgical f/u. Barney June MD FACS
[2017-07-06 10:46] VITALS: BP 146/80; PULSE 79; TEMP 98.7
--- NOTE | 2017-07-06 12:21 | DS ---
Physical Exam: SUBJECTIVE: Patient seen and examined Patient is doing well , had a bowel movement today, able to pass gas and able to tolerate soft diet. OBJECTIVE: Vital Signs Temperature 98.7 F 07/06/17 10:00 Pulse Rate 79 07/06/17 10:00 Respiratory Rate 16 07/06/17 10:00 Blood Pressure 146/80 07/06/17 10:00 O2 Sat by Pulse Oximetry (%) 96 07/06/17 09:00 PHYSICAL EXAM GENERAL: The patient is awake, alert, and fully oriented, in no acute distress. HEAD: Normal with no signs of trauma. EYES: PERRL, extraocular movements intact, sclera anicteric, conjunctiva clear. ENT: Ears normal, oropharynx clear without exudates, moist mucous membranes. NECK: Trachea midline, full range of motion, supple. LUNGS: Breath sounds equal, clear to auscultation bilaterally, no wheezes, no crackles, no accessory muscle use. HEART: Regular rate and rhythm, S1, S2 without murmur, rub or gallop. ABDOMEN: Soft, nontender, only tender at the incision site, nondistended, normoactive bowel sounds, no guarding, no rebound, no hepatosplenomegaly, no masses appreciated EXTREMITIES: 2+ pulses, warm, well-perfused, no edema. NEUROLOGICAL: Cranial nerves II through XII grossly intact. Normal speech, gait not observed. PSYCH: Normal mood, normal affect. SKIN: Warm, dry, normal turgor, no rashes or lesions noted. LABS Laboratory Results - last 24 hr 07/05/17 07/05/17 07/05/17 12:15 17:11 21:35 POC Glucometer 250 192 274 07/06/17 07/06/17 07/06/17 01:13 06:48 11:32 POC Glucometer 176 191 284 CBCD WBC 6.9 K/mm3 (4.0-10.0) 07/05/17 05:32 RBC 5.98 M/mm3 (4.00-5.60) H 07/05/17 05:32 Hgb 11.6 GM/dL (11.7-16.9) L 07/05/17 05:32 Hct 35.4 % (35.4-49) 07/05/17 05:32 MCV 59.1 fl (80-96) L 07/05/17 05:32 MCHC 32.8 g/dl (32.0-35.9) 07/05/17 05:32 RDW 16.0 % (11.9-15.9) H 07/05/17 05:32 Plt Count 202 K/MM3 (134-434) 07/05/17 05:32 MPV 9.2 fl (7.5-11.1) 07/05/17 05:32 CMP Sodium 139 mmol/L (136-145) 07/05/17 09:05 Potassium 4.0 mmol/L (3.5-5.1) 07/05/17 09:05 Chloride 103 mmol/L (98-107) 07/05/17 09:05 Carbon Dioxide 28 mmol/L (21-32) 07/05/17 09:05 Anion Gap 8 (8-16) 07/05/17 09:05 BUN 8 mg/dL (7-18) 07/05/17 09:05 Creatinine 0.9 mg/dL (0.7-1.3) 07/05/17 09:05 Creat Clearance w eGFR > 60 (>60) 07/05/17 09:05 Random Glucose 265 mg/dL (74-106) H 07/05/17 09:05 Calcium 8.2 mg/dL (8.5-10.1) L 07/05/17 09:05 Total Bilirubin 0.5 mg/dL (0.2-1.0) 07/05/17 09:05 AST 24 U/L (15-37) 07/05/17 09:05 ALT 34 U/L (12-78) 07/05/17 09:05 Alkaline Phosphatase 97 U/L (45-117) 07/05/17 09:05 Total Protein 7.1 g/dl (6.4-8.2) 07/05/17 09:05 Albumin 3.1 g/dl (3.4-5.0) L 07/05/17 09:05 CARDIAC ENZYMES Troponin I < 0.02 ng/ml (0.00-0.05) 07/05/17 05:32 Current Medications Generic Name Dose Route Start Last Admin Trade Name Freq PRN Reason Stop Dose Admin Sodium Chloride 1,000 mls @ 100 mls/hr 07/05/17 02:15 07/06/17 06:23 Normal Saline - IV Not Given ASDIR LEANNE Piperacillin Sod/Tazobactam 100 mls @ 200 mls/hr 07/05/17 10:00 07/06/17 09: 24 Sod 4.5 gm/ Dextrose IVPB 200 mls/hr Q8H-IV LEANNE Administration Protocol Insulin Aspart 1 vial 07/05/17 07:00 07/06/17 11:40 Novolog Vial Sliding Scale - SQ 6 units ACHS LEANNE Administration Protocol Tamsulosin HCl 0.4 mg 07/05/17 08:30 07/06/17 09:24 Flomax - PO 0.4 mg DAILY@0830 LEANNE Administration Home Medications Medication Instructions Recorded Glimepiride [Glimepiride -] 1 mg PO DAILY 07/04/17 Metformin HCl 850 mg PO DAILY 07/04/17 Omeprazole 40 mg PO DAILY 07/04/17 Tamsulosin HCl [Flomax -] 0.4 mg PO DAILY 07/04/17 HOSPITAL COURSE: Date of Admission:07/05/17 Date of Discharge: 07/06/17 Patient is a 51 y/o M with PMH HTN, diabetes, who presented to the ED after possible syncopal episode after incarcerated umbilical hernia repair on (07/04) at [facility]. # Acute abdominal pain resolved s/p umbilical hernia repair on 07/04/2017. discussed with the Surgeon who is covering for in details , at [facility] office # [phone], discussed the CT scan in details and symptoms in details. if needed to tx the patient , willing to take him to there center. Patient was treated with IV tylenol for pain and was given antibiotics for possible infection source. Patient is stable at this time, had a BM today, has no pain except the incision site. # syncopal episode possible due to an apneic episode as per patient was sittin stevenson the chair , where he came out of the snoring and became unconscious within a second of loss of consciousness, 911 was called, and was brought to the closest emergency room. will continue IVF, #s/p recent incarcerated umbilical hernia repair surgeon: Dr. Analia Davis as per surgery instructions in packet pt given, holding aspirin 81mg PO qd after his surgery, please refer to packet #HTN- uncontrolled likely due to his abdominal pain s/p surgery, will continue to monitor. please follow with your regular doctor to have your blood pressure checked and to give a medication if needed by his primary. #T2dm , continue home meds. Minutes to complete discharge: 45 Discharge Summary Reason For Visit: SYNCOPE Current Active Problems History of umbilical hernia repair (Acute) Syncope (Acute) Type 2 diabetes mellitus (Acute) Condition: Stable - Instructions Diet, Activity, Other Instructions: low fat, low sugar, low sodium diet. Follow with your surgeon within a week period. Call and check with your surgeon when can you start your aspirin 81mg daily. Please follow the instructions that you were given by your surgeon. Please see an party plan sales consultant to have a better control of your sugar since your hemoglobin A1c was 9.8 have more soft/liquid diet for you go home. No ruffage for now. Referrals: Fatmata Dasilva MD [Primary Care Provider] - Disposition: HOME - Home Medications Comprehensive Discharge Medication List: Ambulatory Orders Aspirin [Aspirin EC] 81 mg PO DAILY 07/04/17 Glimepiride [Amaryl -] 1 mg PO DAILY 07/04/17 Metformin HCl 850 mg PO DAILY 07/04/17 Omeprazole 40 mg PO DAILY 07/04/17 Tamsulosin HCl [Flomax -] 0.4 mg PO DAILY 07/04/17 This patient is new to me today: No Emergency Visit: Yes ED Registration Date: 07/05/17 Care time: The patient presented to the Emergency Department on the above date and was hospitalized for further evaluation of their emergent condition. Critical Care patient: No - Discharge Referral Referred to [facility] Med P.C.: No
--- NOTE | 2017-07-06 12:48 | PN ---
Progress Note, Physician History of Present Illness: No recurrent near or true syncope. Tolerating diet, ambulating, post-op pain improving, having BM. - Current Medication List Current Medications: Active Medications Sodium Chloride (Normal Saline -) 1,000 mls @ 100 mls/hr IV ASDIR [facility] Last Admin: 07/06/17 06:23 Dose: Not Given Piperacillin Sod/Tazobactam (Sod 4.5 gm/ Dextrose) 100 mls @ 200 mls/hr IVPB Q8H-IV LEANNE PRN Reason: Protocol Last Admin: 07/06/17 09:24 Dose: 200 mls/hr Insulin Aspart (Novolog Vial Sliding Scale -) 1 vial SQ ACHS [facility] PRN Reason: Protocol Last Admin: 07/06/17 11:40 Dose: 6 units Tamsulosin HCl (Flomax -) 0.4 mg PO DAILY@0830 [facility] Last Admin: 07/06/17 09:24 Dose: 0.4 mg - Objective Vital Signs: Vital Signs Temperature 98.7 F 07/06/17 10:00 Pulse Rate 79 07/06/17 10:00 Respiratory Rate 16 07/06/17 10:00 Blood Pressure 146/80 07/06/17 10:00 O2 Sat by Pulse Oximetry (%) 96 07/06/17 09:00 Constitutional: Yes: No Distress, Calm, Thin Neck: Yes: Supple Cardiovascular: Yes: Regular Rate and Rhythm Respiratory: Yes: Regular, CTA Bilaterally Gastrointestinal: Yes: Normal Bowel Sounds, Soft Edema: No Labs: CBC, BMP 07/05/17 05:32 07/05/17 09:05 INR, PTT INR 1.04 (0.82-1.09) 07/04/17 20:40 - ....Imaging EKG: Report Reviewed (Tele: SR no pauses) Problem List - Problems (1) History of umbilical hernia repair Code(s): Z98.890 - OTHER SPECIFIED POSTPROCEDURAL STATES; Z87.19 - PERSONAL HISTORY OF OTHER DISEASES OF THE DIGESTIVE SYSTEM (2) Type 2 diabetes mellitus Code(s): E11.9 - TYPE 2 DIABETES MELLITUS WITHOUT COMPLICATIONS (3) Syncope Code(s): R55 - SYNCOPE AND COLLAPSE Qualifiers: Qualified Code(s): R55 - Syncope and collapse Assessment/Plan 1. Vasovagal, orthostatic syncope in context of 2. Post -op ileus and abdominal pain s/p open umbilical hernia repair POD#2 resolving 3. HTN 4. Type 2 DM PLAN: 1. Tolerating diet and ambulation per surgery 2. D/c planning
== END 2017-07-06 13:54 | disposition home or self-care (01) | DRG 204 ==
LOC: JER 20:38 → JERBED 07-05 01:28 → UNDOADMIN 07-05 01:30 → J4W 07-05 07:27
PROVIDERS: ADMIT Internal Medicine; ATTEND Internal Medicine
DX: R55 Syncope and collapse (principal); K56.7 Ileus, unspecified; I10 Essential (primary) hypertension; E11.9 Type 2 diabetes mellitus without complications; N40.0 Benign prostatic hyperplasia without lower urinary tract symptoms; Z98.890 Other specified postprocedural states; K91.89 Other postprocedural complications and disorders of digestive system; Y83.9 Surgical procedure, unspecified as the cause of abnormal reaction of the patient, or of later complication, without mention of misadventure at the time of the procedure
CPT/HCPCS: 36415; 70450-TC; 71045-TC-FY; 74018-TC-FY; 74177-TC; 80048; 80053; 80061; 81003; 81015; 82150; 82962; 83036; 83605; 83690; 83721; 83735; 84100; 84484; 85025; 85027; 85610; 85730; 86140; 87040; 87086; 93005; 93010; 93880-TC; 99285-25; J0131; J7030